=== PATIENT | female | born 1985 | race American Indian/Alaskan Native ===

== ENCOUNTER 2017-04-19 15:14 | Emergency (ER) | payer OTHER ==
[2017-04-19 17:44] LABS: Bilirubin,Urine NEG (Negative); Blood,Urine NEG (Negative); Ketones,Urine NEG (Negative); Leukocyte Esterase,Urine NEG (Negative); Nitrite,Urine NEG (Negative); Protein,Urine <15 mg/dL mg/dL (Negative); Urobilinogen,Urine < 2.0 mg/dL (<2.0); WBC,Urine < 1.0 /HPF (0.0-6.0)
[2017-04-19 18:44] VITALS: BP 125/77
--- NOTE | 2017-04-19 22:31 | Emergency Department Report ---
Entered by SANTIAGO ROBLES, acting as scribe for VIVIANE BOSWELL NP. ED Back Pain/Injury HPI - General Chief Complaint: Back Pain/Injury Stated Complaint: POSSIBLE PREGANCY,BACK PAIN Time Seen by Provider: 04/19/17 16:21 Source: patient Limitations: No Limitations - History of Present Illness Initial Comments: This is a 31 year old female that is non-toxic, non ill appearing, in no acute distress with c/o intermittent back pain for 1 week. Patient lorne stated she does not have any back pain upon. She stated she gets back pain that is described as aching and resolves on its own. Patient believes that she is due to vaginal condom has moved out of place during sexual intercourse. Patient stated have similar symptoms from previous . Patient reports bloating and intermittent abdominal cramping. Patient denies urgency, dysuria, hematuria, abd pain, pelvic pain, nausea, vomiting, fever, CP , SOB, and chills. Patient denies vaginal bleeding or discharge. Patient believes that she is . NKDA. Denies past medical history. LMP 2016. Complaint: back pain -: Gradual, week(s) (1) Similar Symptoms Previously: Yes (Previous ) Place: home Radiation: none Severity: mild Severity scale (0 -10): 4 Quality: aching Consistency: intermittent Improves With: none Worsens With: none Associated Symptoms: denies other symptoms. denies: confusion, weakness, chest pain, numbness, difficulty walking, cough, difficulty urinating, diaphoresis, fever/chills, headaches, abdominal pain, loss of appetite, malaise, nausea/ vomiting, rash, seizure, shortness of breath, syncope - Related Data Home Medications Medication Instructions Recorded Confirmed Last Taken Biotin [Min Biotin] 10,000 mcg PO 04/19/17 Unknown Naproxen [Naprosyn TAB] 250 mg PO 04/19/17 Unknown Previous Rx's Medication Instructions Recorded Last Taken Type Ibuprofen [Motrin 600 MG tab] 600 mg PO Q8H PRN #20 tablet 04/19/17 Unknown Rx Allergies Allergy/AdvReac Type Severity Reaction Status Date / Time No Known Allergies Allergy Unverified 04/19/17 15:29 ED Review of Systems Comment: All other systems reviewed and negative Constitutional: denies: chills, fever Eyes: denies: eye pain, eye discharge, vision change ENT: denies: ear pain, throat pain Respiratory: denies: cough, shortness of breath, wheezing Cardiovascular: denies: chest pain, palpitations Endocrine: no symptoms reported Gastrointestinal: denies: abdominal pain, nausea, vomiting, diarrhea, constipation, hematemesis, melena, hematochezia Genitourinary: denies: urgency, dysuria, frequency, hematuria, discharge, abnormal menses, dyspareunia Musculoskeletal: back pain. denies: joint swelling, arthralgia, myalgia Skin: denies: rash, lesions, change in color, change in hair/nails, pruritus Neurological: denies: headache, weakness, numbness, paresthesias, confusion, abnormal gait, vertigo Psychiatric: denies: anxiety, depression Hematological/Lymphatic: denies: easy bleeding, easy bruising ED Past Medical Hx - Past Medical History Previous Medical History?: No - Surgical History Past Surgical History?: Yes Additional Surgical History: Left knee surgery, - Social History Smoking Status: Never Smoker Substance Use Type: Alcohol - Medications Home Medications: Home Medications Medication Instructions Recorded Confirmed Last Taken Type Biotin [Min Biotin] 10,000 mcg PO 04/19/17 Unknown History Ibuprofen [Motrin 600 MG tab] 600 mg PO Q8H PRN #20 tablet 04/19/17 Unknown Rx Naproxen [Naprosyn TAB] 250 mg PO 04/19/17 Unknown History ED Physical Exam - General Limitations: No Limitations General appearance: alert, in no apparent distress - Head Head exam: Present: atraumatic, normocephalic, normal inspection - Eye Eye exam: Present: normal appearance, PERRL, EOMI. Absent: scleral icterus, conjunctival injection, nystagmus, periorbital swelling, periorbital tenderness Pupils: Present: normal accommodation. Absent: irregular - ENT ENT exam: Present: normal exam, normal orophraynx, mucous membranes moist, TM's normal bilaterally, normal external ear exam - Neck Neck exam: Present: normal inspection, full ROM. Absent: tenderness, meningismus, lymphadenopathy, thyromegaly - Respiratory Respiratory exam: Present: normal lung sounds bilaterally. Absent: respiratory distress, wheezes, rales, rhonchi, stridor, chest wall tenderness, accessory muscle use, decreased breath sounds, prolonged expiratory - Cardiovascular Cardiovascular Exam: Present: regular rate, normal rhythm, normal heart sounds. Absent: bradycardia, tachycardia, irregular rhythm, systolic murmur, diastolic murmur, rubs, gallop - GI/Abdominal GI/Abdominal exam: Present: soft, normal bowel sounds. Absent: distended, tenderness, guarding, rebound, rigid, diminished bowel sounds - Expanded GI/Abdominal Exam Expanded GI/Abdominal exam: Absent: psoas sign, obturator sign, heel tap sign, Dunbar's sign, Rovsing's sign, tenderness at Mcburney's Point, ascites - Rectal Rectal exam: Present: deferred - Extremities Exam Extremities exam: Present: normal inspection, full ROM, normal capillary refill. Absent: tenderness, pedal edema, joint swelling, calf tenderness - Back Exam Back exam: Present: normal inspection, full ROM. Absent: tenderness, CVA tenderness (R), CVA tenderness (L), muscle spasm, paraspinal tenderness, vertebral tenderness, rash noted - Neurological Exam Neurological exam: Present: alert, oriented X3, CN II-XII intact, normal gait, reflexes normal - Psychiatric Psychiatric exam: Present: normal affect, normal mood - Skin Skin exam: Present: warm, dry, intact, normal color. Absent: rash ED Course Vital Signs 04/19/17 04/19/17 15:30 18:43 Temperature 97.5 F L 98.6 F Pulse Rate 76 67 Respiratory 18 18 Rate Blood Pressure 174/99 Blood Pressure 125/77 [Left] O2 Sat by Pulse 98 100 Oximetry - Reevaluation(s) Reevaluation #1: 04/19/17 18:23 Patient is sitting in bed with no signs of distress noted. ED Medical Decision Making - Medical Decision Making Ed course: This is a 31-year-old female that presents with intermittent back pain x1 week 1- patient was examined by myself. UA and test has been obtained. Patient denies any symptoms of back pain currently. Patient stated she would like to get a test because she has symptoms of bloating, cramping, and intermittent back pain as her pervious symptoms 2- patient was instructed of results and was instructed to f/u with her mobile qa tester in 3-5 days 3- Patient was also instructed to return for symptoms worsening and unbearable to the emergency room. 4- at time time of discharge, the patient does not seem toxic or ill in appearance. No acute signs of distress noted. Patient agrees to discharge treatment plan of care. No further questions noted by the patient. ED Disposition Clinical Impression: Low back strain Qualifiers: Encounter type: initial encounter Qualified Code(s): S39.012A - Strain of muscle, fascia and tendon of lower back, initial encounter Disposition: TO HOME OR SELFCARE Is pt being admited?: No Does the pt Need Aspirin: No Condition: Stable Instructions: Ibuprofen (By mouth), Low Back Strain (ED) Additional Instructions: Follow-up with her mobile qa tester in 3-5 days or if symptoms worsening and unbearable return back to the emergency room as soon as possible. Take ibuprofen as prescribed. Prescriptions: Ibuprofen [Motrin 600 MG tab] 600 mg PO Q8H PRN #20 tablet PRN Reason: Pain Referrals: PRIMARY CARE, [Primary Care Provider] - 3-5 Days MYA WILSON MD [Referring] - 3-5 Days [facility] [Outside] - 3-5 Days [facility] [Outside] - 3-5 Days Forms: Work/School Release Form(ED) This documentation as recorded by the TRAVIS seaman PEARL,accurately reflects the service I personally performed and the decisions made by me,VIVIANE BOSWELL, MAGNETIC PROSPECTING SUPERVISOR.
== END 2017-04-19 19:13 | disposition home or self-care (01) ==
LOC: ED 15:14
DX: S39.012A Strain of muscle, fascia and tendon of lower back, initial encounter (principal); X58.XXXA Exposure to other specified factors, initial encounter; Y93.9 Activity, unspecified; Y92.9 Unspecified place or not applicable; Y99.9 Unspecified external cause status
CPT/HCPCS: 81001; 81025; 99283